=== PATIENT | male | born 1965 | race Caucasian/White ===

== ENCOUNTER → 2016-08-21 07:29 | Outpatient (CLI) | payer MEDICAID ==
[2016-04-25 08:04] VITALS: BMI 30.8
[~2016-08-21 07:29] MED LIST: BACTRIM DS TABL1 TAB PO; COREG6.25 MG PO; DILAUDID2 MG PO; MOBIC7.5 MG PO; PERCOCET 10/3251 TA1 PO; PRAVACHOL40 MG PO
== END | disposition home or self-care (01) ==
LOC: D.RAD 07:29 → D.MRI 09:00 → D.RAD 01-21 08:00
DX: M75.122 Complete rotator cuff tear or rupture of left shoulder, not specified as traumatic (principal)

== ENCOUNTER 2016-09-05 05:42 | Day surgery (SDC) | payer MEDICAID ==
[2016-09-04 16:28] LABS: HEMATOCRIT 42.8 % (42.0-54.0); HEMOGLOBIN 14.6 g/dL (13.5-17.5); MCH 31.1 pg (26.0-34.0); MCHC 34.1 g/dL (31.0-37.0); MCV 91.1 fL (80.0-100.0); RBC 4.7 10x6/uL (4.20-6.10); RDW 12.3 % (11.5-14.5); WBC 6.5 10x3/uL (4.8-10.8)
[~2016-09-05] VITALS: Ht 188 cm; Wt 111.1 kg
[~2016-09-05 05:42] MED LIST changes: -BACTRIM DS TABL1 TAB PO; -PERCOCET 10/3251 TA1 PO
[2016-09-05 09:26] VITALS: BP 116/72; Ht 188 cm; Wt 111.1 kg
[2016-09-05] MEDS ORDERED: PERCOCET 10/3251 TA1 PO (13:54)
[2016-09-05] MEDS ORDERED: BACTRIM DS TABL1 TAB PO (13:55)
--- NOTE | 2016-09-05 16:20 | NUR ---
MUCH MORE AWAKE. DRESSED, ASSISTED WITH SLING. INSTRUCTED ON ELBOW EXTENSION AND FLEXION ONLY, NO PENDULUM EXERCISES, VOICED UNDERSTANDING. IV REMOVED WITH TIP INTACT. DISCHARGE INSTRUCTIONS GIVEN. DISCHARGED HOME VIA WC.
--- NOTE | 2016-09-09 10:12 | OP ---
PATIENT NAME: DESTINY ENCINAS MEDICAL RECORD: [id number] :61 LOCATION:D.[facility] ADMISSION DATE: SURGEON: BRUCE YANG MD DATE OF OPERATION: 09/05/2016 PREOPERATIVE DIAGNOSIS: Rotator cuff tear of the left shoulder. POSTOPERATIVE DIAGNOSES: Rotator cuff tear of the left shoulder with severe biceps tendinitis. PROCEDURES: 1. Open rotator cuff repair of the left shoulder. 2. Biceps tenodesis of the left shoulder. 3. Left shoulder arthroscopy. SURGEON: Bruce Yang MD. ANESTHESIA: General. INTRAOPERATIVE COMPLICATIONS: None. SUMMARY OF PATHOLOGIC FINDINGS: At the time of arthroscopy, the patient was found to have a tear that was essentially back to just lateral to the glenoid and his biceps tendon showed near complete tearing. At this point of the operation, decision made to do an open rotator cuff repair due to the nature of the rotator cuff tear. PROCEDURE IN DETAIL: Arthroscopy was terminated at this point. The previously utilized small lateral incision was elongated for this revision rotator cuff repair, taken down past the level of the deltoid fascia and the rotator cuff was exposed. A small amount of the deltoid was taken off the anterior lateral lip of the acromion. After exposure, removal of all previously placed suture anchors and FiberWire was then followed by serial and sequential mobilization of the rotator cuff. The rotator cuff apex was tied [id number] with a FiberTape. A second [id number] reapproximation was done and the rotator cuff did go together; however, it was somewhat tenuous. Prior to tying the third string with good exposure of the biceps, the biceps was excised and tenodesed at the proximal portion of the bicipital groove using an 8 mm biotenodesis screw from [employer] using the pin ream fix technique. Having completed, the rotator cuff was then reexamined. Final hxmg-dx-xjil suture was made and it was felt that the repair was tenuous enough that the acellular dermis grafting was appropriate. The graft was affixed laterally using the [employer] SpeedBridge kit, which resulted in excellent stabilization on both the graft and as well as the rotator cuff underneath it. The SpeedBridge was used in crisscross fashion that it usually is. It was anchored laterally with an [employer] SwiveLock and medially with [employer] SwiveLock. Having completed this, the entire graft was then sewn in laterally to the subscapularis across the apex of the tear and to the supraspinatus using 0 FiberWire. The construct looked very strong. Wound was then irrigated at this point and many points during the case. The deep layer of deltoid fascia was closed with #1 Vicryl, it was reapproximated to the acromion with #1 Vicryl, superficial layer was closed with #1 Vicryl. The skin was closed with 2-0 Vicryl followed by skin lauro. The posterior portal likewise was closed with skin lauro. Having completed this, sterile dressings were applied. The patient was awakened and taken to the recovery room in stable condition. All final needle and sponge counts were correct. OPERATIVE REPORT [id number] DESTINY ENCINAS TRANSINT:[id number] Voice Confirmation ID: [id number] DOCUMENT ID: [id number] BRUCE YANG MD at 1012 CC: [id number] DICTATION DATE: 09/05/16 1402 [employer] FINISHING: 09/05/16 1948 [facility] 09/05/16 [facility] [address] [place] [address]
== END 2016-09-05 16:20 | disposition home or self-care (01) ==
LOC: D.OPS 05:42 → D.PAN 11:45 → D.OPS 11:45 → D.PAN 14:30 → D.OPS 16:20
PROVIDERS: Anesthesiology
DX: M75.102 Unspecified rotator cuff tear or rupture of left shoulder, not specified as traumatic (principal); M75.22 Bicipital tendinitis, left shoulder

== ENCOUNTER → 2016-12-12 13:58 | Outpatient (CLI) | payer MEDICAID ==
[2016-09-05 09:26] VITALS: BMI 31.5
[~2016-12-12 13:58] MED LIST changes: +BACTRIM DS TABL1 TAB PO; +PERCOCET 10/3251 TA1 PO
== END | disposition home or self-care (01) ==
LOC: D.MRI 13:58
DX: M25.521 Pain in right elbow (principal)

== ENCOUNTER 2017-01-16 06:05 | Day surgery (SDC) | payer MEDICAID ==
[2017-01-14 11:33] LABS: HEMATOCRIT 45.5 % (42.0-54.0); HEMOGLOBIN 15.5 g/dL (13.5-17.5); MCH 31.4 pg (26.0-34.0); MCHC 34.1 g/dL (31.0-37.0); MCV 92.3 fL (80.0-100.0); MEAN PLATELET VOLUME 9.8 fL (7.4-10.4); RBC 4.93 10x6/uL (4.20-6.10); RDW 12.3 % (11.5-14.5); WBC 6.4 10x3/uL (4.8-10.8)
[~2017-01-16] VITALS: Ht 188 cm; Wt 117.9 kg
[~2017-01-16 06:05] MED LIST changes: +FISH OIL 1,0001 CA1 PO; +MAGNESIUM GLUC500 M1 PO
[2017-01-16 06:55] VITALS: BP 113/65; Ht 188 cm; Wt 117.9 kg
[2017-01-16] MEDS ORDERED: HYDROCODONE-APA1 TAB PO (09:07)
--- NOTE | 2017-01-16 10:37 | NUR ---
1025 DC TEACHING COMPLETE W/PT AND PRESCRIPT GIVEN TO . 1030 PIV DC W/CATHETER TIP INTACT
--- NOTE | 2017-01-16 10:46 | NUR ---
1044 PT ESCORTED OUT VIA WC W/FAMILY AT SIDE. DRIVING ICE PACK IN WRIST.
--- NOTE | 2017-01-17 16:21 | OP ---
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 PROCEDURE: Right lateral epicondylectomy with debridement and repair. SURGEON: Bruce Yang MD ANESTHESIA: General. INTRAOPERATIVE COMPLICATIONS: None. SUMMARY OF PATHOLOGIC FINDINGS: The patient had a tear of the deep extensor mass from the lateral epicondyle consistent with the preoperative MRI with noted tendinosis and calcific tendinosis. OPERATIVE SUMMARY IN DETAIL: After obtaining the appropriate preoperative orthopedic surgery consent as well as anesthetic consultation, evaluation and clearance, the patient was brought to the operating room and placed on the operating table in supine position. After general laryngeal mask was administered, tourniquet was placed about the proximal aspect of the right upper extremity. The right upper extremity was then prepped and draped in routine sterile fashion. The arm was elevated and exsanguinated, tourniquet inflated to 350 mmHg. An incision was made directly over the lateral epicondyle taken down to the fibers of the lateral extensor mass to the bone itself for a significant tendinosis was encountered. Elliptical incision of the significant canal stenosis was done. Care was taken to avoid the joint itself. It was not penetrated. A small sagittal saw was utilized to excise a portion of the lateral epicondyle. Having completed this, a 2.0 drill hole was created for a 2.6 SutureTak. SutureTak was deployed and utilized to reapproximate the viable origins back to the lateral epicondyle. Having completed this, a #1 Vicryl was used for fascial closure followed by 2-0 Vicryl and skin lauro for final closure. General dressings were applied. Tourniquet was deflated. Posterior splint was applied. The patient was awakened and taken to recovery in stable condition. All final needle and sponge counts were correct. TRANSINT:[id number] Voice Confirmation ID: [id number] DOCUMENT ID: [id number] BRUCE YANG MD at 1621 CC: [id number] DICTATION DATE: 01/16/17910 STORE HOST: 01/16/17 1608 [facility] 01/16/17 [facility] [address] [facility] [place] [address]
== END 2017-01-16 10:44 | disposition home or self-care (01) ==
LOC: D.OPS 06:05 → D.PAN 08:15 → D.OPS 08:15 → D.PAN 08:25 → D.OPS 08:25
PROVIDERS: Anesthesiology
DX: M77.11 Lateral epicondylitis, right elbow (principal); M65.28 Calcific tendinitis, other site; Z01.812 Encounter for preprocedural laboratory examination

== ENCOUNTER → 2017-02-21 12:06 | Outpatient (CLI) | payer MEDICAID ==
[2017-01-16 06:55] VITALS: BMI 33.4
[~2017-02-21 12:06] MED LIST changes: +HYDROCODONE-APA1 TAB PO
[2017-02-23 19:08] LABS: TESTOSTERONE - FREE 3.9 pg/mL (7.2-24.0); TESTOSTERONE - SERUM 155 ng/dL (264-916)
== END | disposition home or self-care (01) ==
LOC: D.LAB 12:06
PROVIDERS: Urology
DX: E83.42 Hypomagnesemia (principal)

== ENCOUNTER → 2017-04-18 09:47 | Outpatient (CLI) | payer MEDICAID ==
[2017-01-16 06:55] VITALS: BMI 33.4
[2017-04-22 03:09] LABS: TESTOSTERONE - FREE 3.3 pg/mL (7.2-24.0); TESTOSTERONE - SERUM 157 ng/dL (264-916)
== END | disposition home or self-care (01) ==
LOC: D.LAB 04-16 09:15
PROVIDERS: Urology
DX: E29.1 Testicular hypofunction (principal)

== ENCOUNTER 2017-11-12 15:57 | Emergency (ER) | payer MEDICAID ==
[~2017-11-12] VITALS: Ht 188 cm; Wt 106.4 kg
[2017-11-12 16:59] VITALS: Ht 188 cm; Wt 106.4 kg
[2017-11-12] MEDS ORDERED: CELEBREX50 MG (17:03)
[2017-11-12] MEDS ORDERED: TORADOL10 MG PO (20:13)
[2017-11-13 03:57] VITALS: BP 112/68
== END 2017-11-12 21:00 | disposition home or self-care (01) ==
LOC: D.ER 15:57
DX: M25.561 Pain in right knee (principal); I10 Essential (primary) hypertension; K21.9 Gastro-esophageal reflux disease without esophagitis; F17.200 Nicotine dependence, unspecified, uncomplicated

== ENCOUNTER → 2017-11-27 08:28 | Outpatient (CLI) | payer MEDICAID ==
[2017-11-12 16:59] VITALS: BMI 30.1
[~2017-11-27 08:28] MED LIST changes: +CELEBREX50 MG; +TORADOL10 MG PO
== END | disposition home or self-care (01) ==
LOC: D.CT 08:28
DX: R10.9 Unspecified abdominal pain (principal)

== ENCOUNTER → 2018-01-19 10:44 | Outpatient (CLI) | payer MEDICAID ==
[2017-11-12 16:59] VITALS: BMI 30.1
== END | disposition home or self-care (01) ==
LOC: D.MRI 10:30
DX: M25.561 Pain in right knee (principal)